=== PATIENT | male | born 1980 | race Two or more races ===

== ENCOUNTER 2019-09-15 00:25 | Emergency (ER) | payer OTHER ==
[~2019-09-15] VITALS: Ht 175.3 cm; Wt 79.4 kg
[2019-09-15] MEDS ORDERED: KETO10TA2 PO (02:13)
[2019-09-15] MEDS ORDERED: ZITHROMAX500 MG PO (02:46)
== END 2019-09-15 02:49 | disposition home or self-care (01) ==
LOC: ER 00:25
DX: S01.82XA Laceration with foreign body of other part of head, initial encounter (principal); S60.212A Contusion of left wrist, initial encounter; S50.02XA Contusion of left elbow, initial encounter; V18.2XXA Unspecified pedal cyclist injured in noncollision transport accident in nontraffic accident, initial encounter; Y93.89 Activity, other specified; Y92.413 State road as the place of occurrence of the external cause; Y99.8 Other external cause status